=== PATIENT | male | born 1940 | race Caucasian/White ===

== ENCOUNTER 2017-06-02 12:50 | Emergency (ER) | payer OTHER ==
[2017-06-02] MEDS ORDERED: AMOXICILLIN/CLAVULANATE POT 875/125 MG TAB PO ONE (13:12)
[2017-06-02] MEDS ORDERED: IBUPROFEN 200 MG TAB PO ONE (13:12)
--- NOTE | 2017-06-02 13:22 | EDPHY ---
H & P Time Seen by Provider: 06/02/17 13:00 HPI/ROS: HPI Right hand pain and swelling. 77-year-old male by private vehicle. This patient reports that he woke up on Thursday morning with pain and swelling to his right hand, specifically his right thumb, greater thenar eminence spreading through the right thumb and through the metacarpal phalangeal joint. There is no history of trauma. He has not been using any industrial solvents. He does not have any history of gouty arthritis. He denies fever. He reports he had a similar episode like this involving his left hand a couple of months ago and this resolved spontaneously after 24-48 hours. He is right-hand dominant. He went to see his primary care physician at [facility] on was told to come to the emergency department for evaluation. He reports his pain has improved since this morning. ROS: Constitutional: No fever, no chills. No weakness. Musculoskeletal: No back pain. No neck pain. As above. Skin: No rashes. No lacerations or abrasions. Neurological: No focal weakness or altered sensation. Past medical history: Prostate cancer, hypertension, prediabetic, hyperlipidemia, orthopedic surgeries left knee and back. Social history: Here by himself. Nonsmoker. Physical Exam: General Appearance: Alert, no distress. This patient is responding to questions appropriately and in full sentences. This patient appears well- hydrated and well-nourished. Eyes: Pupils equal and round no pallor or injection. No lid edema, erythema or injection. Right hand exam: Significant for a diffuse swelling and faint erythema and warmth involving from the base greater thenar eminence through the metacarpal phalangeal joint. No pain on axial loading of the thumb. No snuffbox tenderness. The other bony aspects of the hand are nontender on palpation. No obvious laceration. Some old superficial abrasions on the dorsal aspect of the hand. No evidence of abscess. Some discomfort elicited with flexion both passively and actively of the metacarpal phalangeal joint. The right hand is neurovascularly intact. Neurological: Motor sensory function is grossly intact. Cranial nerves are normal. Gait is normal. Skin: Warm and dry, no rashes. Extremities are symmetrical. All joints range without pain or impingement except noted. Psychiatric: No agitation. No depression. Database: EKG: Imaging: Right hand x-ray: Negative for fracture, subluxation, dislocation. Degenerative changes noted. Interpreted by me. Procedures: Emergency department course: This medication allergies were reviewed. He has no contraindications to NSAIDs. He was given 800 mg of ibuprofen for pain and for treatment of possible gouty arthritis. He was given 875 mg of Augmentin for treatment of possible cellulitis. He was sent for x-rays. 1:30 p.m., patient re-evaluated. Resting comfortably at this time. Results of x-ray discussed with him. Pain is improved with administration of ibuprofen. He is afebrile. Tachycardia has resolved. Plan will be to discharge him on Augmentin 875 mg twice daily for 7 days and high-dose ibuprofen for the next 3 days. I will have him follow up with me tomorrow afternoon for recheck of the right hand. He is in agreement with this. Return to emergency department precautions were thoroughly reviewed with him. All of his questions were answered. He was discharged from the emergency department in good condition. Differential Diagnosis: The differential diagnosis on this patient includes but is not limited to gout, pseudogout, cellulitis. Septic arthritis, fracture, subluxation, dislocation unlikely. This represents a partial list of diagnoses considered. These considerations are based on history, physical exam, past history, reassessment and diagnostic testing. Smoking Status: Former smoker Constitutional: Initial Vital Signs Temperature (C) 36.5 C 06/02/17 12:56 Heart Rate 100 06/02/17 12:56 Respiratory Rate 18 06/02/17 12:56 Blood Pressure 163/122 H 06/02/17 12:56 O2 Sat (%) 93 06/02/17 12:56 O2 Delivery Mode Room Air Allergies/Adverse Reactions: No Allergies [NKDA] Allergy (Verified 06/02/17 13:01) Home Medications: Medication Instructions Recorded Amoxicillin/Clavulanate Pot 875 mg PO BID 7 Days tab 06/02/17 [Augmentin 875 mg tab] Hydrochlorothiazide 06/02/17 SIMVASTATIN 06/02/17 Medical Decision Making - Diagnostics Imaging Results: Imaging Impressions Hand X-Ray 06/02/17 13:10 Impression: 1. No underlying acute osseous abnormality seen right hand. 2. Degenerative joint disease/osteoarthritis. 3. No soft tissue gas identified. - Data Points Medications Given: Discontinued Medications Amoxicillin/Clavulanate Potassium (Augmentin 875mg) 875 mg PO EDNOW ONE PRN Reason: Protocol Stop: 06/02/17 13:13 Last Admin: 06/02/17 13:19 Dose: 875 mg Ibuprofen (Motrin) 800 mg PO EDNOW ONE Stop: 06/02/17 13:13 Last Admin: 06/02/17 13:19 Dose: 800 mg Departure - Departure Disposition: Home, Routine, Self-Care Clinical Impression: Swelling of right hand, Right hand pain Condition: Good Instructions: Cellulitis (ED) Additional Instructions: Read and follow provided instructions. Follow-up with with me in the emergency department here tomorrow afternoon at 1: 00 p.m.. Take antibiotic as prescribed through entire course of treatment. Ibuprofen dosin mg every 8 hours with meals for the next 3 days only. This is to treat pain as well as treat your for possible gouty arthritis involving your right hand. Return to the emergency department immediately for worsening pain, swelling, fever, discoloration or other serious concerns. Referrals: KAUSHIK RAMSEY,. [Primary Care Provider] - As per Instructions Prescriptions: Amoxicillin/Clavulanate Pot [Augmentin 875 mg tab] 875 mg PO BID 7 Days tab
[2017-06-02 13:25] VITALS: BP 144/89; PULSE 98; RESP 20; TEMP 97.2; O2SAT 95
== END 2017-06-02 13:46 | disposition home or self-care (01) ==
LOC: CED 12:50
DX: M79.641 Pain in right hand (principal); M79.89 Other specified soft tissue disorders; I10 Essential (primary) hypertension; Z85.46 Personal history of malignant neoplasm of prostate; Z87.891 Personal history of nicotine dependence
CPT/HCPCS: 73130-PO

== ENCOUNTER 2017-06-03 13:12 | Emergency (ER) | payer OTHER | END 2017-06-03 13:15 | disposition left against medical advice (07) | LOC: CED 13:12 | DX: Z53.21 Procedure and treatment not carried out due to patient leaving prior to being seen by health care provider (principal) ==